=== PATIENT | female | born 1995 | race Caucasian/White ===

== ENCOUNTER → 2018-10-03 14:18 | Outpatient (CLI) | payer BC, SELFPAY ==
[2017-07-13 08:47] VITALS: BMI 34.7
[2018-10-03 16:18] LABS: hCG Titer Quant., Serum 877 mIU/mL (<9 non-preg)
[2018-10-03 17:26] LABS: Chlamydia Trachomatis by PCR Negative (Negative); Neisserai gonorrhoeae by PCR Negative (Negative); Probe Check PASS; Sample Adequacy Control PASS; Specimen Processing Control PASS
[2018-10-08 14:15] LABS: HPV Reflexed? NOT INDICATED
== END ==
PROVIDERS: Visit Provider Obstetrics & Gynecology
DX: Z32.01 Encounter for pregnancy test, result positive (principal); Z12.4 Encounter for screening for malignant neoplasm of cervix; Z11.3 Encounter for screening for infections with a predominantly sexual mode of transmission
CPT/HCPCS: 36415; 84702; 87491; 87591; 88175; G0145

== ENCOUNTER → 2018-10-05 | Outpatient (CLI) | payer BC, SELFPAY ==
[2017-07-13 08:47] VITALS: BMI 34.7
[2018-10-05 16:29] LABS: hCG Titer Quant., Serum 1873 mIU/mL (<9 non-preg)
== END | disposition home or self-care (01) ==
LOC: WOBLAB 14:10
PROVIDERS: Visit Provider Obstetrics & Gynecology
DX: Z32.01 Encounter for pregnancy test, result positive (principal)
CPT/HCPCS: 36415; 84702

== ENCOUNTER → 2018-10-11 | Outpatient (CLI) | payer BC, SELFPAY ==
[2017-07-13 08:47] VITALS: BMI 34.7
--- NOTE | 2018-10-11 13:45 | US_ITS ---
STUDY: FIRST TRIMESTER OBSTETRICAL ULTRASOUND REASON FOR EXAM: Female, 22 years old. dating. LMP: August 07, 2018. TECHNIQUE: Transvaginal TECHNICAL QUALITY: Adequate. PRIOR ULTRASOUND: None. FINDINGS: There is visualization of a single gestational sac in a normal intrauterine position. The mean sac diameter (MSD) measures 9 mm, indicating an estimated gestational age (EGA) of 5 weeks, 4 days. The gestational sac shape is within normal limits. There is a visualized yolk sac. The yolk sac measures 4.3 mm. The placenta is non-visualized. There is visualization of a embryo. The crown-rump length (CRL) measures 2.4 mm, indicating an estimated gestational age (EGA) of 5 weeks, 6 days. There is no demonstrated cardiac activity at this time. Follow-up is recommended. The estimated gestation age (EGA) by LMP is 9 weeks, 2 days. The estimated date of delivery (LUCY) by LMP is May 14, 2019. The estimated gestation age (EGA) by US is 5 weeks, 5 days. The estimated date of delivery (LUCY) by US is June 08, 2019. The uterus measures 8.5 cm x 6 x 4.6 cm. There is no demonstrated uterine fibroid. The cervix is closed. The right ovary measures 3.0 cm x 1.5 cm x 2.0 cm. There is no right ovarian cyst. There is no visualized right adnexal mass or complex lesion. The left ovary measures 4.0 cm x 2.6 x 2.1 cm. There is a 1.5 cm x 1.6 cm x 1.2 cm dominant follicle in the ovary most likely representing a corpus luteum cyst. There is no visualized left adnexal mass or complex lesion. There is minimal fluid in the cul de sac. US/Init OB < 14Wks US IMPRESSION: Anterior and gestation with a mean gestational age of 5 weeks and 6 days. No embryonic cardiac activity is seen at this time. Follow-up is recommended. Electronically Signed: Juanito Garzon, at 14:49 EDT , Service support ,
== END | disposition home or self-care (01) ==
LOC: OPUS 13:43
PROVIDERS: Family Provider Internal Medicine; PCP Internal Medicine; Referring Provider Obstetrics & Gynecology; Visit Provider Obstetrics & Gynecology
DX: Z34.81 Encounter for supervision of other normal pregnancy, first trimester (principal)
CPT/HCPCS: 76801

== ENCOUNTER → 2018-10-17 | Outpatient (CLI) | payer BC, SELFPAY ==
[2017-07-13 08:47] VITALS: BMI 34.7
[2018-10-17 15:34] LABS: Color, Urine Yellow (Yellow); Glucose, Dipstick Normal (Normal); Ketone-Dipstick Negative (Negative); Leukocyte Esterase-Dipstick 100 /ul (Negative); Nitrite-Dipstick Negative (Negative); Occult Blood-Urine Negative /ul (Negative); Protein-Dipstick Negative (Negative); Urine Bilirubin Dipstick Negative (Negative); Urine Clarity Clear (Clear); Urine Urobilinogen Normal (Normal)
[2018-10-17 15:49] LABS: Amphetamine Urine VISTA NEGATIVE (<1000 ng/mL); Barbiturate Urine VISTA NEGATIVE (< 200 ng/mL); Benzodiazepine Urine VISTA NEGATIVE (< 200 ng/mL); Cocaine Urine VISTA NEGATIVE (< 300 ng/mL); Ecstacy Urine VISTA NEGATIVE (< 500 ng/mL); Methadone Urine VISTA NEGATIVE (< 300 ng/mL); PCP Urine VISTA NEGATIVE (< 25 ng/mL); THC Urine VISTA NEGATIVE (< 50 ng/mL); Vista UDS pH Range 7
[2018-10-17 16:20] LABS: COTININE Drug Screen Negative (<200 ng/mL)
[2018-10-17 17:23] LABS: Absolute Lymphocyte Count 2.15 X10^3/ul (0.83-4.51); Absolute Neutrophil Count 4.3 X10^3/uL (2.0-7.7); Basophil# 0.02 X10^3/uL; Basophil% 0.3 % (0-1); Eosinophil# 0.12 X10^3/uL; Eosinophils% 1.7 % (0-5); Hematocrit 42.7 % (37-47); Hemoglobin 14.5 g/dl (12.0-15.0); Lymphocyte # 2.15 X10^3/ul (4.0); Lymphocyte % 30.9 % (19-41); Mean Corpuscular Hgb 29.5 pg (27.0-32.0); Mean Platelet Vol. 11.6 fl (6.2-12.0); Monocyte# 0.37 X10^3/uL; Monocyte% 5.3 % (0-10); Neutrophil # 4.28 X10^3/uL (2.7-7.7); Neutrophil % 61.7 % (47-70); Platelet Count 236 K/mm3 (150-450); RBC Distribution Width CV 13.8 % (11.6-14.6); RBC Distribution Width SD 43.7 fl (35.1-43.9); Red Blood Count 4.91 M/mm3 (4.2-5.4)
[2018-10-17 17:24] LABS: POSITIVE COUNT NO; POSITIVE DIFFERENTIAL NO; POSITIVE MORPHOLOGY NO
[2018-10-17 17:43] LABS: Thyroid Stim Hormone (TSH) 2.66 uIU/mL (0.358-3.74)
[2018-10-17 18:21] LABS: HIV - WCH Non-Reactive (Nonreactive)
[2018-10-19 02:51] LABS: Prenatal RPR NONREACTIVE (NONREACTIVE)
[2018-10-20 15:13] LABS: HEPATITIS B SURFACE AG Negative (Negative); Hep C Antibodies <0.1 s/co ratio (0.0-0.9); V-Zoster IgG (Immunity) 3261 index (Immune >165)
== END | disposition home or self-care (01) ==
LOC: WOBLAB 14:37
PROVIDERS: Visit Provider Obstetrics & Gynecology
DX: Z34.81 Encounter for supervision of other normal pregnancy, first trimester (principal)
CPT/HCPCS: 36415; 80307; 81002; 84443; 85025; 86703; 86762; 86787; 86803; 87340

== ENCOUNTER → 2018-11-27 | Outpatient (CLI) | payer OTHER, SELFPAY ==
[2017-07-13 08:47] VITALS: BMI 34.7
== END | disposition home or self-care (01) ==
LOC: LABSPEC 16:44
PROVIDERS: Visit Provider Obstetrics & Gynecology
DX: N39.0 Urinary tract infection, site not specified (principal)
CPT/HCPCS: 87086; 87088

== ENCOUNTER → 2019-01-23 | Outpatient (CLI) | payer OTHER, SELFPAY ==
--- NOTE | 2019-01-23 11:58 | US_ITS ---
STUDY: SECOND AND THIRD TRIMESTER OBSTETRICAL ULTRASOUND REASON FOR EXAM: Female, 23 years old. Routine survey. LMP: August 07, 2018. TECHNIQUE: Transabdominal TECHNICAL QUALITY: Adequate. PRIOR ULTRASOUND: Comparison is made with prior study dated October 11, 2018. FINDINGS: There is a single intrauterine fetus. The fetus is in a breech presentation. There is demonstrated cardiac activity with a heart rate of 146 bpm. There is a normal amniotic fluid volume. The largest amniotic fluid pocket measures 8.3 cm x 4.8 cm. The amniotic fluid index (ARDIAN) is within normal limits. The placenta is anterior in location and is not low lying. There are Grade 0 placental changes. The cervix measures 4.6 cm in length. The bilateral adnexal regions are normal. BIOMETRY: BPD: 4.97 cm: 21 weeks, 1 days HC: 18.78 cm: 21 weeks, 1 days AC: 17.66 cm: 22 weeks, 4 days FL: 3.6 cm: 21 weeks, 3 days CI: 77% FL/BPD: 72% FL/HC: FL/AC: 20% HC/AC: 1.06 age by current US: 21 weeks, 4 days. LUCY by current US: June 01, 2019. Estimated weight: 460 grams, +/- 67 grams, 97 %. age by prior US: 20 weeks, 4 days. LUCY by prior US: June 08, 2019. Age by LMP: 20 weeks, 4 days. LUCY by LMP: March 09, 2019. ANATOMY: Gender: Male Cranium: Normal lateral ventricles. Normal choroid plexus. Normal cerebellum. Normal cisterna magna. Normal face, nose and lips. Chest: Normal 4-chamber heart. Abdomen/Pelvis: Normal diaphragm. Normal stomach. Normal abdominal wall. Normal cord insertion. Normal 3 vessel cord. Normal kidneys. Normal bladder. Spine: Limited views of the cervical, thoracic and lumbar spine and sacrum due to position. Follow-up is recommended. Extremities: Normal bilateral upper extremities. Normal bilateral lower extremities. US/OB Anatomy Scan IMPRESSION: Single live intrauterine gestation with a mean gestational age of 20 weeks and 4 days. The measurements obtained today follow-up in the normal expected range. Limited visualization of the spine as described. A follow-up is recommended. Electronically Signed: Juanito Garzon, at 8:35 EDT , Service support ,
== END | disposition home or self-care (01) ==
PROVIDERS: Family Provider Internal Medicine; PCP Internal Medicine; Referring Provider Obstetrics & Gynecology; Visit Provider Obstetrics & Gynecology
DX: Z34.02 Encounter for supervision of normal first pregnancy, second trimester (principal)
CPT/HCPCS: 76805

== ENCOUNTER → 2019-02-18 | Outpatient (CLI) | payer OTHER, SELFPAY ==
[2017-07-13 08:47] VITALS: BMI 34.7
--- NOTE | 2019-02-18 12:16 | US_ITS ---
STUDY: SECOND AND THIRD TRIMESTER OBSTETRICAL ULTRASOUND - LIMITED REASON FOR EXAM: Female, 23 years old. Limited examination of the spine. LMP: August 07, 2018. PRIOR ULTRASOUND: Comparison is made with prior examination of January 23, 2019. TECHNIQUE: Transabdominal TECHNICAL QUALITY: Adequate. FINDINGS: There is a single intrauterine fetus. The fetus is in a transverse lie with the head on the maternal right side. There is demonstrated cardiac activity with a heart rate of 142 bpm. The placenta is anterior in location and is not low lying. Imaging of the cervical, thoracic and lumbar spine was performed. No abnormality is seen. US/OB Limited (No Biometrics) IMPRESSION: Unremarkable examination. Electronically Signed: Juanito Garzon, at 15:47 EDT , Service support ,
== END | disposition home or self-care (01) ==
LOC: OPUS 12:13
PROVIDERS: Family Provider Internal Medicine; PCP Internal Medicine; Referring Provider Obstetrics & Gynecology; Visit Provider Obstetrics & Gynecology
DX: Z34.82 Encounter for supervision of other normal pregnancy, second trimester (principal)
CPT/HCPCS: 76815

== ENCOUNTER → 2019-02-18 | Outpatient (CLI) | payer OTHER, SELFPAY | END | disposition home or self-care (01) | PROVIDERS: Family Provider Internal Medicine; PCP Internal Medicine; Referring Provider Obstetrics & Gynecology; Visit Provider Obstetrics & Gynecology | DX: Z34.82 Encounter for supervision of other normal pregnancy, second trimester (principal) ==

== ENCOUNTER → 2019-03-18 | Outpatient (CLI) | payer OTHER, SELFPAY ==
[2017-07-13 08:47] VITALS: BMI 34.7
[2019-03-18 10:38] LABS: Hematocrit 36.4 % (37-47); Hemoglobin 12.5 g/dL (12.0-15.0); Mean Corp Hgb Conc 34.3 g/dL (32-36); Mean Corpuscular Hgb 31.3 pg (27.0-32.0); Mean Platelet Vol. 11.4 fl (6.2-12.0); Platelet Count 170 K/mm3 (150-450); RBC Distribution Width CV 13.5 % (11.6-14.6); RBC Distribution Width SD 45.1 fl (35.1-43.9); White Blood Count 6.2 K/mm3 (4.4-11.0)
[2019-03-18 10:49] LABS: Glucose Challenge Gest 1H 50g 94 mg/dL (70-140)
== END | disposition home or self-care (01) ==
LOC: WOBLAB 09:50
PROVIDERS: Visit Provider Obstetrics & Gynecology
DX: Z34.83 Encounter for supervision of other normal pregnancy, third trimester (principal)
CPT/HCPCS: 36415; 82950; 85027; 86850

== ENCOUNTER → 2019-03-29 | Outpatient (CLI) | payer OTHER, SELFPAY ==
--- NOTE | 2019-03-29 12:15 | US_ITS ---
STUDY: SECOND AND THIRD TRIMESTER OBSTETRICAL ULTRASOUND REASON FOR EXAM: Female, 23 years old growth LMP: 09/01/2018 TECHNIQUE: Transabdominal TECHNICAL QUALITY: Adequate. PRIOR ULTRASOUND: 02/18/2019. FINDINGS: There is a single intrauterine fetus. The fetus is in a cephalic presentation. There is demonstrated cardiac activity with a heart rate of 120 bpm. There is a normal amniotic fluid volume. The largest amniotic fluid pocket measures 4.6 cm. The amniotic fluid index (ADRIAN) is 11.2 cm. The placenta is fundal in location. There are Grade 1 placental changes. The cervix measures 3.9 cm in length. The bilateral adnexal regions are normal. BIOMETRY: BPD: 7.9: 31 weeks, 5 days HC: 29.2: 32 weeks, 1 days AC: 27.9: 31 weeks, 6 days FL: 5.8: 30 weeks, 2 days CI: FL/BPD: FL/HC: FL/AC: HC/AC: age by current US: 31 weeks, 3 days. LUCY by current US: 05/28/2019. Estimated weight: 1788 grams, +/- 268 grams, 92 %. age by prior US: 30 weeks, 6 days. LUCY by prior US: 06/01/2019. Age by LMP: 29 weeks, 6 days. LUCY by LMP: 06/08/2019. US/OB Limited With Biometrics IMPRESSION: Single live fetus in a vertex presentation. survey not performed on this exam. Placenta is grade 1 and is not low-lying. Cervix is closed. age by current US: 31 weeks, 3 days. LUCY by current US: 05/28/2019. Estimated weight: 1788 grams, +/- 268 grams, 92 %. Electronically Signed: Valente Hoffman MD at 19:46 EDT , Service support ,
== END | disposition home or self-care (01) ==
PROVIDERS: Referring Provider Obstetrics & Gynecology; Visit Provider Obstetrics & Gynecology
DX: Z34.83 Encounter for supervision of other normal pregnancy, third trimester (principal)
CPT/HCPCS: 76816

== ENCOUNTER 2019-04-29 09:48 | Outpatient (CLI) | payer OTHER, SELFPAY ==
[2019-04-29 10:59] VITALS: BMI 36.9
[2019-04-29 11:06] LABS: Group B Strep DNA By PCR Negative (Negative); Internal Control PASS; Probe Check PASS; Specimen Processing Control PASS
[2019-04-29] MEDS: Lactated Ringers 500 ML 999 ML IV (11:15)
[2019-04-29] MEDS: Lactated Ringers 1,000 ML 125 ML IV (11:45)
[2019-04-29] MEDS: Betamethasone/Betamethasone 30 MG/5 ML Vial 12 MG IM (12:07)
--- NOTE | 2019-04-29 13:14 | OB.TRI.NOTE ---
History of Present Illness Date of Service: 04/29/19 Was patient seen by the physician?: Yes Reason For Visit: R/O PTL Date of Service: 04/29/19 Final LUCY: 06/08/19 Final LUCY Source: US <20 weeks Gestational age: 34 Weeks and 2 Days History of Present Illness: 23yo at 34w2d gestation by 8w3d US seen in office for c/o pelvic pressure, cramping since last night, decreased FM and increased vaginal discharge this AM on tissue after toileting; in office cervix was 2.5/30/-3, soft, anterior; abdomen soft, non tender; pool, nitrazine, fern, wet mount negative Allergies No Known Allergies Allergy (Verified 04/29/19 10:57) Laboratory Studies: Laboratory Tests 04/29/19 Range/Units 09:40 Group B Strep DNA Negative (Negative) Specimen Comment Not Reportable Physical Exam Vitals: AVSS per verbal report of RN Cervix Dilation (cm): 2.5 - VE per RN report Station: -3 Effacement (%): 30 NST - FHR Rate Baby A Baseline: 145 Variability:: Moderate Accelerations:: 15 x 15 Decelerations:: None NST Reactive:: Yes FHR Category:: Category I Impression/Plan Impression: 23yo at 34w2d gestation by 8w3d US R/O PTL w/ mild irregular UCs, 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 Norton who also reviewed strip GBS swab done in office prior to arrival Complete IV fluids -1L LR, now running at 125 p/500ml bolus Initial corticosteroid dose for prophylactic lung maturity given, return for 2nd dose in 24 hours DC home w/PTL precautions, FM counts, increased rest and fluids; pelvic rest and off work until 36 weeks RTO next scheduled office visit
== END 2019-04-29 10:40 | disposition home or self-care (01) ==
LOC: LABSPEC 09:49 → WPOUT 10:04 → WP 10:05
PROVIDERS: Referring Provider Advanced Practice Midwife; Visit Provider Advanced Practice Midwife
DX: O36.8190 Decreased fetal movements, unspecified trimester, not applicable or unspecified (principal); Z3A.34 34 weeks gestation of pregnancy
CPT/HCPCS: 96372; 59025; 59050; 87081; 87653; 99218; J7120; G0378; J0702

== ENCOUNTER 2019-04-30 11:20 | Outpatient (CLI) | payer OTHER, SELFPAY ==
[2019-04-29 10:59] VITALS: BMI 36.9
[2019-04-30] MEDS: Betamethasone/Betamethasone 30 MG/5 ML Vial 12 MG IM (11:48)
== END 2019-04-30 11:55 | disposition home or self-care (01) ==
LOC: LAB 11:22 → WP 11:23
PROVIDERS: Referring Provider Obstetrics & Gynecology; Visit Provider Obstetrics & Gynecology
DX: O60.00 Preterm labor without delivery, unspecified trimester (principal)
CPT/HCPCS: 96372; 99218; G0378; J0702

== ENCOUNTER 2019-05-08 16:45 | Outpatient (CLI) | payer OTHER, SELFPAY ==
[2019-05-08 17:02] VITALS: BMI 37.3
[2019-05-08 17:47] LABS: ROM Internal Control Test YES-OK TO RESULT pt. (Internal QC); ROM Patient Test Negative (Negative)
[2019-05-08 18:18] LABS: Color, Urine Yellow (Yellow); Glucose, Dipstick Normal (Normal); Ketone-Dipstick Negative (Negative); Leukocyte Esterase-Dipstick 100 /ul (Negative); Mucous, Urine 0 SEEN /hpf (<or=2+); Nitrite-Dipstick Negative (Negative); Occult Blood-Urine 10 /ul (Negative); Protein-Dipstick Negative (Negative); Urine Bilirubin Dipstick Negative (Negative); Urine Clarity Sl. Cloudy (Clear); Urine Urobilinogen Normal (Normal)
[2019-05-08 18:32] LABS: Bacteria 1+ /hpf (None Seen); Red Blood Cells-Urine 0-5 SEEN /hpf (0-5); Squamous Epithelial Cells - UA 5-10 SEEN /hpf (5-10); White Blood Cells 5-10 SEEN /hpf (0-5)
[2019-05-08] MEDS: Cephalexin 500 MG Capsule PO (19:40)
--- NOTE | 2019-05-08 23:55 | OB.TRI.HP_ITS ---
- Problem List (1) 35 weeks gestation of Status: Acute (2) False labor Status: Acute History of Present Illness Date of Service: 05/08/19 Was patient seen by the physician?: No Reason For Visit: R/O LABOR Final LUCY: 06/08/19 Final LUCY Source: US <20 weeks Gestational age: 35 Weeks and 4 Days History of Present Illness: 23yo with c/o back pain, pelvic discomfort and wetness. hx precipitous delivery. Allergies No Known Allergies Allergy (Verified 04/29/19 10:57) Laboratory Studies: Laboratory Tests 05/08/19 05/08/19 Range/Units 18:10 17:10 Urine Color Yellow (Yellow) Urine Clarity Sl. Cloudy (Clear) Urine pH 7.0 (5.0 - 8.0) Ur Specific [place] 1.010 (1.002-1.030) Urine Protein Negative (Negative) mg/dl Urine Glucose (UA) Normal (Normal) mg/dl Urine Ketones Negative (Negative) mg/dl Urine Occult Blood 10 H (Negative) /ul Urine Nitrite Negative (Negative) Urine Bilirubin Negative (Negative) mg/dL Urine Urobilinogen Normal (Normal) mg/dl Ur Leukocyte Esterase 100 H (Negative) /ul Urine RBC 0-5 SEEN (0-5) /hpf Urine WBC 5-10 SEEN (0-5) /hpf Ur Squamous Epith Cells 5-10 SEEN (5-10) /hpf Urine Bacteria 1+ (None Seen) /hpf Urine Mucus 0 SEEN (<or=2+) /hpf Vag Amniotic Fld Detect Negative (Negative) Physical Exam Vitals: avss NST - FHR Rate Baby A Baseline: 150 Variability:: Moderate Accelerations:: 15 x 15 Decelerations:: None NST Reactive:: Yes FHR Category:: Category I Uterine Activity:: 0/10 Impression/Plan 23yo with false labor at 35 4/7wga -d/c home
== END 2019-05-08 19:44 | disposition home or self-care (01) ==
LOC: WPOUT 17:01 → WP 17:02
PROVIDERS: Obstetrics & Gynecology; Referring Provider Obstetrics & Gynecology; Visit Provider Obstetrics & Gynecology
DX: O47.03 False labor before 37 completed weeks of gestation, third trimester (principal); Z3A.35 35 weeks gestation of pregnancy
CPT/HCPCS: 59025; 81001; 84112; 87086; 87088; 99218; G0378

== ENCOUNTER → 2019-05-10 | Outpatient (CLI) | payer OTHER, SELFPAY ==
[2019-05-08 17:02] VITALS: BMI 37.3
[2019-05-10 13:39] LABS: Protein, Urine (Random) 24.5 mg/dL (<11.9); Protein:Creat Ratio 152 mg/g CRE (0-200)
[2019-05-10 13:40] LABS: ALB/GLOB Ratio 0.7 RATIO (0.9-2.4); AST(SGOT) 21 U/L (15-37); Alanine Aminotransfer ALT/SGPT 28 U/L (13-56); Albumin, Serum 3.1 g/dL (3.2-5.0); Alkaline Phosphatase 144 U/L (45-117); Anion Gap 10 (5-15); BUN 6 mg/dL (7-18); BUN/Creat Ratio 11.5 RATIO (10-20); Chloride 106 mmol/L (98-107); Creatinine, Serum 0.52 mg/dL (0.55-1.02); EST Glomerular Filtration Rate 151 mL/min (>60); Est Glom Filt Rate - Afr Amer 183 mL/min (>60); Globulin 4.3 g/dL (2.2-4.2); Glucose 77 mg/dL (74-106); Hematocrit 42.2 % (37-47); Hemoglobin 14.1 g/dL (12.0-15.0); Mean Corp Hgb Conc 33.4 g/dL (32-36); Mean Corpuscular Hgb 30.8 pg (27.0-32.0); Mean Corpuscular Volume 92.1 fL (81-99); Mean Platelet Vol. 12.5 fl (6.2-12.0); Platelet Count 153 K/mm3 (150-450); Potassium 3.7 mmol/L (3.5-5.1); Protein, Total 7.4 g/dL (6.4-8.2); RBC Distribution Width CV 13.5 % (11.6-14.6); RBC Distribution Width SD 45.3 fl (35.1-43.9); Red Blood Count 4.58 M/mm3 (4.2-5.4); Sodium Level 139 mmol/L (136-145); White Blood Count 8.6 K/mm3 (4.4-11.0)
== END | disposition home or self-care (01) ==
LOC: WOBLAB 10:15
PROVIDERS: Referring Provider Obstetrics & Gynecology; Visit Provider Obstetrics & Gynecology
DX: O13.3 Gestational [pregnancy-induced] hypertension without significant proteinuria, third trimester (principal); Z3A.00 Weeks of gestation of pregnancy not specified
CPT/HCPCS: 36415; 80053; 82570; 84156; 84550; 85027

== ENCOUNTER 2019-06-03 07:05 | Inpatient (IN) | payer OTHER, SELFPAY ==
[2019-06-03] MEDS: Lactated Ringers 1,000 ML 50 ML IV (07:35)
[2019-06-03] MEDS: Oxytocin 30 units/NS 500 ml 30 UNITS/500 ML IV.SOLN IV (07:44)
[2019-06-03 07:45] VITALS: BMI 38.1
[2019-06-03 08:00] LABS: Absolute Lymphocyte Count 2.37 X10^3/uL (0.83-4.51); Absolute Neutrophil Count 3.7 X10^3/uL (2.0-7.7); Basophil# 0.02 X10^3/uL; Basophil% 0.3 % (0-1); Eosinophil# 0.07 X10^3/uL; Eosinophils% 1.1 % (0-5); Hematocrit 36.2 % (37-47); Hemoglobin 12.3 g/dL (12.0-15.0); Lymphocyte # 2.37 X10^3/ul (4.0); Mean Corpuscular Volume 88.3 fL (81-99); Monocyte# 0.42 X10^3/uL; Monocyte% 6.4 % (0-10); NRBC Flagged by Analyzer 0 % (0-5); Neutrophil # 3.67 X10^3/uL (2.7-7.7); Neutrophil % 55.7 % (47-70); Platelet Count 148 K/mm3 (150-450); RBC Distribution Width CV 13.2 % (11.6-14.6); RBC Distribution Width SD 42.9 fl (35.1-43.9); White Blood Count 6.6 K/mm3 (4.4-11.0)
--- NOTE | 2019-06-03 09:23 | HP.PCM_ITS ---
- Problem List (1) 39 weeks gestation of Status: Acute History Date of Admission: 06/03/19 Final LUCY: 06/08/19 Final LUCY Source: US <20 weeks Gestational age: 39 Weeks and 2 Days History of this : This is a 23 year-old, G [], P [], at 39 weeks gestational age. Allergies No Known Allergies Allergy (Verified 04/29/19 10:57) Home Medications: Home Medications Pnv No.95/Ferrous Fum/Folic AC [ Caplet] 1 ea PO DAILY 04/29/19 Smoking Status: Never smoker Number of Fetus(es): 1 NST - FHR Rate Baby A Baseline: 140 Variability:: Moderate Accelerations:: 15 x 15 Decelerations:: None NST Reactive:: Yes FHR Category:: Category I Uterine Activity:: Q3 minutes History Past Pregnancies: See office history Labs: Mom's Problem List Problem Status Onset Code 39 weeks gestation of Acute Z3A.[id number] Mom's Labs & Results 06/03/19 06/03/19 07:35 07:35 WBC 6.6 RBC 4.10 L Hgb 12.3 Hct 36.2 L MCV 88.3 MCH 30.0 MCHC 34.0 RDW Std Deviation 42.9 RDW Coeff of Chata 13.2 Plt Count 148 L MPV 12.0 Immature Gran % (Auto) 0.500 Neut % (Auto) 55.7 Lymph % (Auto) 36.0 Maries % (Auto) 6.4 Eos % (Auto) 1.1 Baso % (Auto) 0.3 Absolute Neuts (auto) 3.7 Absolute Lymphs (auto) 2.37 Nucleated RBC % 0 Blood Type B NEGATIVE Antibody Screen NEGATIVE Course Did the patient receive Yes care? Labs Blood Type: B RH: NEGATIVE RPR/VDRL/Syphilis Nonreactive Rubella status Immune HbSAg Negative Date Done: 10/17/18 Chlamydia Negative Gonorrhea Negative HIV/AIDS Non-Reactive Group B Strep: Negative Current Obstetrical History Gestational Diabetes No Incompetent Cervix No Infertility No IUGR No Macrosomia No Hypertension/Pre-eclampsia No Placenta Previa/Abruption No PTL/PROM No Uterine anomaly No Oligohydramnios No Polyhydramnios No Multiple gestation No Past Medical History Asthma No Diabetes No Hypertension No Heart disease No Mitral valve prolapse No Neurologic/Seizure disorder/ Yes Migraines Kidney disease No Liver disease No Varicosities No Clotting disorders/Hx of DVT No Thyroid Dysfunction No Other medical diseases No Psychiatric disorders No Major trauma No Abnormal PAP smear No Sleep apnea No Mammogram in the last 2 years No Social History Marital Status: Alleged father [place] Hx Smoking No Smoking Status Never smoker Expected Delivery Method: Spontaneous Vaginal Number of Visits: 14 Review of Systems Constitutional: Denies: Chills, Fever, Weight Change HEENT: Denies: Head Aches, Sinus Congestion, Sinus Drainage Cardiovascular: Denies: Chest Pain, Palpitations Respiratory: Denies: Cough, Shortness of breath at rest, Sputum production Gastrointestinal: Denies: Abdominal Pain, Nausea, Vomiting Genitourinary: Denies: Dysuria Musculoskeletal: Denies: Joint Pain, Joint Tenderness Skin: Denies: Rash, Wounds Neurological: Denies: Numbness, Tingling, Focal weakness Psychiatric: Denies: Anxiety, Depression, Homicidal Ideations, Suicidal Ideations Hematologic/ Lymphatic: Denies: Easy Bruising, Easy Bleeding Physical Exam General: Alert, Oriented x3, No apparent distress HEENT: Atraumatic, Normocephalic. Negative for: Thyromegaly, Lymphadenopathy Cardiovascular: Regular rate, Regular Rhythm Lungs: Clear to auscultation Abdomen: Bowel Sounds Present, Gravid Neurological: Deep Tendon Reflexes 2+/4 and Symmetrical, Neuro grossly intact [employer]: Normal external genitalia. Negative for: Vulvar lesions Estimated gestational size: Appropriate for gestational size Presentation: Cephalic Cervix Dilation (cm): 5 - per RN Station: -3 Effacement (%): 50 Assessment/Plan All Active Problems 35 weeks gestation of (Acute) False labor (Acute) 39 weeks gestation of (Acute) A: This is a 23 year-old, G [3], P [2], at 39.2 weeks gestational age. Scheduled elective induction of labor d/t hx of rapid labors and distance from hospital NST baseline 140, + accels, - decels, moderate variability, Category 1 P: Pitocin induction Wishes to go natural, will allow AROM if not progressing To recheck SVE in 4 hours or as needed Expect vaginal delivery
[2019-06-03] MEDS: Oxytocin 30 units/NS 500 ml 30 UNITS/500 ML IV.SOLN 334 UNITS IV (14:55)
--- NOTE | 2019-06-03 17:13 | DCINST_ITS ---
Discharge Diet: No Restrictions Discharge Activity: Return to Normal Activity, May not drive while taking narcotic pain medications., May Shower May resume sexual activity in: 4-6 weeks Additional Activity Instructions:: Nothing in the vagina for 4-6 weeks. You may return to work/school in 6 weeks. Additional Instructions: If you experience any of the following, contact your healthcare provider. * Bleeding that soaks a pad every hour for 2 hours * Fever 100.4 or higher * Unrelieved incision or abdominal pain * Swelling, redness, discharge or bleeding from your incision or episiotomy site * Your incision begins to separate * Problems urinating (including inability to urinate or burning while urinating). * Visual changes * Severe headache * Flu-like symptoms * Pain or redness in one of both of your breasts * Pain, warmth, tenderness or swelling in your legs, especially the calf area * Frequent nausea and vomiting * Symptoms of depression or anxiety If you experience any of the following, call 911 or go to the nearest Emergency Room. * Chest pain * Problems breathing * Seizure activity * Partial or complete paralysis of a body part, slurred speech, weakness or drooping of the face, or a sudden inability to walk or hold your balance Allergies/Adverse Reactions: Allergies No Known Allergies Allergy (Verified 04/29/19 10:57) Medications to take at Discharge Pnv No.95/Ferrous Fum/Folic AC [ Caplet] 1 ea PO DAILY 04/29/19 Please Follow Up With: Marcie Hart CNM When: In 6 weeks Primary Care Physician: Care Physician,No Primary [Primary Care Provider] - Test Results: Test results from this visit will be discussed in further detail at your follow- up appointment, if applicable. Proposed Discharge Date: 06/05/19
--- NOTE | 2019-06-03 17:13 | PCM.DCVAG ---
Discharge Diet: No Restrictions Discharge Activity: Return to Normal Activity, May not drive while taking narcotic pain medications., May Shower May resume sexual activity in: 4-6 weeks Additional Activity Instructions:: Nothing in the vagina for 4-6 weeks. You may return to work/school in 6 weeks. Additional Instructions: If you experience any of the following, contact your healthcare provider. Bleeding that soaks a pad every hour for 2 hours Fever 100.4 or higher Unrelieved incision or abdominal pain Swelling, redness, discharge or bleeding from your incision or episiotomy site Your incision begins to separate Problems urinating (including inability to urinate or burning while urinating). Visual changes Severe headache Flu-like symptoms Pain or redness in one of both of your breasts Pain, warmth, tenderness or swelling in your legs, especially the calf area Frequent nausea and vomiting Symptoms of depression or anxiety If you experience any of the following, call 911 or go to the nearest Emergency Room. Chest pain Problems breathing Seizure activity Partial or complete paralysis of a body part, slurred speech, weakness or drooping of the face, or a sudden inability to walk or hold your balance Allergies/Adverse Reactions: Allergies No Known Allergies Allergy (Verified 04/29/19 10:57) Medications to take at Discharge Pnv No.95/Ferrous Fum/Folic AC [ Caplet] 1 ea PO DAILY 04/29/19 Please Follow Up With: Marcie Hart CNM When: In 6 weeks Primary Care Physician: Care Physician,No Primary [Primary Care Provider] - Test Results: Test results from this visit will be discussed in further detail at your follow-up appointment, if applicable. Proposed Discharge Date: 06/05/19
--- NOTE | 2019-06-03 17:15 | PCM.OPRPT ---
Problem List (1) 39 weeks gestation of Status: Acute Vaginal Delivery Maternal Presentation: Elective Induction Called to delivery with head at 0 station, urge to push with an anterior lip 9-12 o'clock. Able to push past cervical lip, with two pushes. Pushed well, delivered a viable male OA to KIEL. placed on mothers abdomen. Apgars 9/9. Cord clamped x2 by CNM and cut by FOB. Cord blood collected. Pitocin started after cord cut. Placenta delivered spontaneously with gentle traction in Kowalski mechanism, intact, appearing 3 vessel cord, central insertion, fundal massage provided. First degree perineal laceration, no repair needed. EBL 150. Sponge and instrument count correct x 2 with RN. Method of Induction: Pitocin Amniotic Membrane Rupture Type: Artificial Rupture of Membrane time: 1230 Amniotic Fluid Description: Clear Final LUCY: 06/08/19 Final LUCY Source: US <20 weeks Gestational age: 39 Weeks and 2 Days Date of Procedure: 06/03/19 Pre-Operative Diagnosis: 39 week induction Post-Operative Diagnosis: S/P NVD Surgery/ Procedure Performed: Spontaneous Vaginal Delivery Type of Anesthesia: None Presentation: Vertex, KIEL Placental Delivery Description: Spontaneous Placenta Disposition: [facility] Cord Vessel Description: 3 Vessels Cord Entanglement: None Estimated Blood Loss: 150 Infant A gender: Male (1 minute): 9 (5 minute): 9 Episiotomy Description: None Laceration: Perineal Extension/lac, 1st degree - no repair needed Medications given after delivery: IV Pitocin
[2019-06-03] MEDS: 0.9% Saline Lock 10 ML Syringe IV (17:21)
[2019-06-03] MEDS: Ibuprofen 600 MG Tablet PO (17:25)
[2019-06-03 19:55] VITALS: BP 106/65; PULSE 73; RESP 16; TEMP 36.3; O2SAT 97
[2019-06-03] MEDS: Acetaminophen 500 MG Tablet 1000 MG PO (20:24)
[2019-06-04 00:50] VITALS: BP 144/93; PULSE 87; RESP 16; TEMP 36.3; O2SAT 98
[2019-06-04] MEDS: oxyCODONE 5 MG Tablet PO (01:04)
[2019-06-04] MEDS: Dibucaine 30 GM Tube 1 APPLIC TOPICAL (01:05)
[2019-06-04 04:20] VITALS: BP 119/77; PULSE 74; RESP 18; TEMP 36.2; O2SAT 98
[2019-06-04] MEDS: Ibuprofen 600 MG Tablet PO ×2 (07:06→15:03)
[2019-06-04 08:05] VITALS: BP 122/88; PULSE 74; RESP 18; TEMP 37; O2SAT 98
--- NOTE | 2019-06-04 08:58 | PCM.PN.OB ---
Patient Problems: Active and Suspected Problems 39 weeks gestation of (Acute) Subjective: States she is doing well, mild cramping. Bottle feeding son and wants to go home after his circumcision. Objective: VSS. Fundus u/1 firm midline with normal lochia rubra. - Physical Exam Vitals/I&O's: Vital Signs Temp Pulse Resp BP Pulse Ox 98.6 F 74 18 122/88 H 98 06/04/19 08:05 06/04/19 08:05 06/04/19 08:05 06/04/19 08:05 06/04/19 08:05 Oxygen Delivery Method Room Air Weight: 103.9 kg Body Mass Index (BMI) 38.1 Intake and Output for Last 24 Hours 06/02/19 06/03/19 06/04/19 23:59 23:59 23:59 Intake Total 902.46 / 902.46 Balance 902.46 / 902.46 General: Alert, Oriented x3, Cooperative HEENT: Atraumatic, PERRLA, EOMI, Normocephalic Neck: Supple, No JVD, Negative Carotid Bruits Lungs: Clear to auscultation, Normal air movement Cardiovascular: Regular rate, No murmurs Abdomen: Bowel Sounds Present, Soft, Non Tender, Passing Flatus, - - fundus u/1 Extremities: No edema, Capillary Refill Less than 3 Seconds Skin: No rashes, No breakdown, - - perineal 1st degree laceration repair Musculoskeletal: No Tenderness to Palpation of Joints or Extremities Neurological: Cranial nerves II-XII grossly intact Psych/Mental Status: Normal Affect, Appropriate Laboratory Results 06/03/19 07:35: Blood Type B NEGATIVE, Antibody Screen NEGATIVE Current Medications Acetaminophen (Tylenol) 1,000 mg PO Q8H PRN PRN PRN Reason: Pain Score 1-3/10 Last Admin: 06/03/19 20:24 Dose: 1,000 mg Documented by: Bisacodyl (Dulcolax) 10 mg RECTAL UD PRN PRN Reason: If no BM Dibucaine (Dibucaine) 1 applic TOPICAL TID PRN PRN; Protocol PRN Reason: Discomfort Last Admin: 06/04/19 01:05 Dose: 1 applicatio Documented by: Hydrocortisone (Hytone) 1 applic TOPICAL TID PRN PRN; Protocol PRN Reason: Discomfort Ibuprofen (Motrin) 600 mg PO Q6H PRN PRN PRN Reason: Pain Score 1-3/10 Last Admin: 06/04/19 07:06 Dose: 600 mg Documented by: Influenza Virus Vaccine Quadrival (Flucelvax /Fluzone ) 0.5 ml IM .ONCE ONE Stop: 06/04/19 10:01 Methylergonovine Maleate (Methergine) 0.2 mg IM X1 PRN PRN Reason: Excess bleeding/uterine atony Ondansetron HCl (Zofran) 4 mg IV Q4H PRN PRN PRN Reason: Nausea Oxycodone HCl (Oxyir) 5 - 10 mg PO Q4H PRN PRN PRN Reason: Pain Score 4-10/10 Last Admin: 06/04/19 01:04 Dose: 5 mg Documented by: Senna/Docusate Sodium (Senokot-S, Maame-Colace) 1 - 2 tablet PO DAILY PRN PRN PRN Reason: Constipation Simethicone (Mylicon) 80 mg PO PCHS PRN PRN Reason: Indigestion/Stomach pain Sodium Chloride () 5 - 15 ml IV UD PRN PRN Reason: SALINE FLUSH Last Admin: 06/03/19 17:21 Dose: 10 ml Documented by: Zolpidem Tartrate (Ambien (Generic)) 5 mg PO QHS PRN PRN PRN Reason: Insomnia Medical Necessity - Tobacco Use Smoking Status: Never smoker Assessment/Plan All Active Problems 35 weeks gestation of (Acute) False labor (Acute) 39 weeks gestation of (Acute) A: S/P day #1 First degree laceration Male bottle feeding P: Continue with stool softeners, Motrin and Tylenol PRN Plan to discharge later today after son's circumcision
--- NOTE | 2019-06-04 09:36 | PCM.DC.SUM ---
Discharge Date and Diagnosis - Problem List Patient Problems: Active and Suspected Problems 39 weeks gestation of (Acute) Date of Admission: 06/03/19 Date of Discharge: 06/04/19 - Primary Discharge Diagnosis Active and Suspected Problems 39 weeks gestation of (Acute) Hospital Course and Treatment Summary of Care Provided: The patient is a 23 year old F [] Patient Problems: Active and Suspected Problems 39 weeks gestation of (Acute) Subjective: Feeling well, mild cramping, but overall good. Bottle feeding son. Objective: VSS. Fundus u/1. Lochia rubra. - Physical Exam Vitals/I&O's: Vital Signs Temp Pulse Resp BP Pulse Ox 98.6 F 74 18 122/88 H 98 06/04/19 08:05 06/04/19 08:05 06/04/19 08:05 06/04/19 08:05 06/04/19 08:05 Oxygen Delivery Method Room Air Weight: 103.9 kg Body Mass Index (BMI) 38.1 Intake and Output for Last 24 Hours 06/02/19 06/03/19 06/04/19 23:59 23:59 23:59 Intake Total 902.46 / 902.46 Balance 902.46 / 902.46 General: Alert, Oriented x3, Cooperative HEENT: Atraumatic, PERRLA, EOMI, Normocephalic Neck: Supple, No JVD, Negative Carotid Bruits Lungs: Clear to auscultation, Normal air movement Cardiovascular: Regular rate, No murmurs Abdomen: Bowel Sounds Present, Soft, Non Tender, Passing Flatus, - - fundus u/1 Extremities: No edema, Capillary Refill Less than 3 Seconds Skin: No rashes, No breakdown Musculoskeletal: No Tenderness to Palpation of Joints or Extremities Neurological: Cranial nerves II-XII grossly intact Psych/Mental Status: Normal Affect, Appropriate Laboratory Results 06/03/19 07:35: Blood Type B NEGATIVE, Antibody Screen NEGATIVE Current Medications Acetaminophen (Tylenol) 1,000 mg PO Q8H PRN PRN PRN Reason: Pain Score 1-3/10 Last Admin: 06/03/19 20:24 Dose: 1,000 mg Documented by: Bisacodyl (Dulcolax) 10 mg RECTAL UD PRN PRN Reason: If no BM Dibucaine (Dibucaine) 1 applic TOPICAL TID PRN PRN; Protocol PRN Reason: Discomfort Last Admin: 06/04/19 01:05 Dose: 1 applicatio Documented by: Hydrocortisone (Hytone) 1 applic TOPICAL TID PRN PRN; Protocol PRN Reason: Discomfort Ibuprofen (Motrin) 600 mg PO Q6H PRN PRN PRN Reason: Pain Score 1-3/10 Last Admin: 06/04/19 07:06 Dose: 600 mg Documented by: Influenza Virus Vaccine Quadrival (Flucelvax /Fluzone ) 0.5 ml IM .ONCE ONE Stop: 06/04/19 10:01 Methylergonovine Maleate (Methergine) 0.2 mg IM X1 PRN PRN Reason: Excess bleeding/uterine atony Ondansetron HCl (Zofran) 4 mg IV Q4H PRN PRN PRN Reason: Nausea Oxycodone HCl (Oxyir) 5 - 10 mg PO Q4H PRN PRN PRN Reason: Pain Score 4-10/10 Last Admin: 06/04/19 01:04 Dose: 5 mg Documented by: Senna/Docusate Sodium (Senokot-S, Maame-Colace) 1 - 2 tablet PO DAILY PRN PRN PRN Reason: Constipation Simethicone (Mylicon) 80 mg PO PCHS PRN PRN Reason: Indigestion/Stomach pain Sodium Chloride () 5 - 15 ml IV UD PRN PRN Reason: SALINE FLUSH Last Admin: 06/03/19 17:21 Dose: 10 ml Documented by: Zolpidem Tartrate (Ambien (Generic)) 5 mg PO QHS PRN PRN PRN Reason: Insomnia Discharge Diet: No Restrictions Discharge Activity: Return to Normal Activity, May not drive while taking narcotic pain medications., May Shower May resume sexual activity in: 4-6 weeks Additional Activity Instructions:: Nothing in the vagina for 4-6 weeks. You may return to work/school in 6 weeks. Home Medications: Medications to take at Discharge Pnv No.95/Ferrous Fum/Folic AC [ Caplet] 1 ea PO DAILY 04/29/19 Primary Care Physician: Care Physician,No Primary [Primary Care Provider] - Please Follow Up With: Marcie Hart CNM When: 6 weeks Disposition: Home Minutes spent on discharge:: 20 Patient Condition:: Good Medical Necessity - Tobacco Use Smoking Status: Never smoker Meaningful Use Info Meaningful Use Diagnoses (Choose all that apply): None applicable
[2019-06-04 12:33] VITALS: BP 110/68; PULSE 70; RESP 16; TEMP 36.3; O2SAT 96
[2019-06-04 16:54] VITALS: BP 122/74; PULSE 81; RESP 16; TEMP 36.4; O2SAT 96
== END 2019-06-04 17:05 | disposition home or self-care (01) | DRG 807 ==
PROVIDERS: Admitting Provider Obstetrics & Gynecology; Referring Provider Obstetrics & Gynecology; Visit Provider Obstetrics & Gynecology
DX: O70.0 First degree perineal laceration during delivery (principal); Z37.0 Single live birth; Z3A.39 39 weeks gestation of pregnancy
CPT/HCPCS: 59050; 85025; 86850; 86900; 86901; 99218; J7120; 90686; A4216; G0378

== ENCOUNTER → 2023-09-08 | Outpatient (CLI) | payer MEDICAID, SELFPAY ==
[2023-09-08 08:54] LABS: Absolute Lymphocyte Count 2.02 X10^3/uL (0.83-4.51); Absolute Neutrophil Count 2.9 X10^3/uL (2.0-7.7); Basophil# 0.04 X10^3/uL; Basophil% 0.7 % (0-1); Eosinophil# 0.11 X10^3/uL; Hematocrit 39.5 % (37-47); Hemoglobin 13.3 g/dL (12.0-15.0); Lymphocyte # 2.02 X10^3/ul (0.83-4.51); Lymphocyte % 37.3 % (19-41); Mean Corp Hgb Conc 33.7 g/dL (32-36); Mean Corpuscular Hgb 29.8 pg (27.0-32.0); Mean Corpuscular Volume 88.4 fL (81-99); Mean Platelet Vol. 10.1 fl (6.2-12.0); Monocyte# 0.32 X10^3/uL; Monocyte% 5.9 % (0-10); NRBC Flagged by Analyzer 0 % (0-5); Neutrophil # 2.91 X10^3/uL (2.7-7.7); Neutrophil % 53.9 % (47-70); Platelet Count 218 K/mm3 (150-450); RBC Distribution Width CV 13.1 % (11.6-14.6); RBC Distribution Width SD 42.1 fl (35.1-43.9); Red Blood Count 4.47 M/mm3 (4.2-5.4); White Blood Count 5.4 K/mm3 (4.4-11.0)
[2023-09-08 09:27] LABS: Thyroid Stim Hormone (TSH) 2.97 uIU/mL (0.358-3.74)
== END | disposition home or self-care (01) ==
PROVIDERS: PCP Internal Medicine; Referring Provider Obstetrics & Gynecology; Visit Provider Obstetrics & Gynecology
DX: N80.9 Endometriosis, unspecified (principal)
CPT/HCPCS: 36415; 84443; 85025

== ENCOUNTER → 2023-10-03 | Outpatient (CLI) | payer MEDICAID, SELFPAY ==
--- NOTE | 2023-10-03 16:15 | US_ITS ---
EXAM: US PELVIS TRANSABDOMINAL LIMITED AND TRANSVAGINAL CLINICAL INDICATION: endometriosis TECHNIQUE: Transabdominal (limited) and transvaginal pelvic ultrasound was performed with grayscale and color Doppler imaging. Transvaginal imaging was used for better evaluation of the endometrium and adnexa. COMPARISON: No relevant prior studies available. FINDINGS: UTERUS/CERVIX: Nabothian cysts are present. Anteverted. There is no uterine mass. The uterus measures 7.6 x 4.9 x 3.0 cm. The endometrial stripe measures 0.5 cm in thickness. RIGHT OVARY: No significant abnormality. Blood flow is present in the right ovary. The right ovary measures 4.3 x 2.1 x 2.1 cm. LEFT OVARY: No significant abnormality. Blood flow is present in the left ovary. The left ovary measures 3.6 x 1.7 x 1.9 cm. FREE FLUID: Mild free fluid within the cul-de-sac is likely physiologic. BLADDER: Normal as visualized. Wall is normal thickness for degree of distention. US/Transvaginal Non- IMPRESSION: No acute findings in the pelvis. Electronically Signed: Jeffrey Villaseñor DO at 0:00 EDT ,
== END | disposition home or self-care (01) ==
LOC: US 16:14
PROVIDERS: PCP Internal Medicine; Referring Provider Obstetrics & Gynecology; Visit Provider Obstetrics & Gynecology
DX: N80.9 Endometriosis, unspecified (principal)
CPT/HCPCS: 76830; 76856

== ENCOUNTER 2024-01-30 07:42 | Day surgery (SDC) | payer MEDICAID, SELFPAY ==
[2024-01-27 09:30] LABS: Hematocrit 41.9 % (37-47); Hemoglobin 13.6 g/dL (12.0-15.0); Mean Corp Hgb Conc 32.5 g/dL (32-36); Mean Corpuscular Hgb 28.8 pg (27.0-32.0); Mean Corpuscular Volume 88.8 fL (81-99); Mean Platelet Vol. 9.2 fl (6.2-12.0); Platelet Count 235 K/mm3 (150-450); RBC Distribution Width CV 13.3 % (11.6-14.6); RBC Distribution Width SD 43.4 fl (35.1-43.9); Red Blood Count 4.72 M/mm3 (4.2-5.4); White Blood Count 6.2 K/mm3 (4.4-11.0)
[2024-01-27 10:32] LABS: Magnesium 2.3 mg/dL (1.6-2.6)
[2024-01-30] VITALS (7 sets, daily range): BP systolic 121–127; BP diastolic 68–79; PULSE 80–105; RESP 16–18; TEMP 36.1–37; O2SAT 89–98; BMI 44.6
--- NOTE | 2024-01-30 06:40 | PCM.HP.BLA ---
History and Physical Date of Admission: 01/30/24 [facility] [address] [place] [address] OFFICE VISIT Date of Service: 01/19/24 MR#: [id number] Acct: [id number] Name: GUSTABO FIGUEROA Rep #: [id number] : 1995 Provider: Dr. Tita Harry MD Age/Sex: 28/F [place] [facility] [place]: Signed Intake Vital Signs 09/08/2407:09 09/10/2410:32 01/19/2412:24 01/19/2412:25 Height 5 ft 5 in 5 ft 5 in 5 ft 5 in 5 ft 5 in Weight: 269 lb 8 oz BMI 44.8 BP 138/88 H Intake Visit Reasons: preop/consult penciled in 01/29 Fur Buyer Required: No Is patient in pain?: No Allergies No Known Allergies Allergy (Verified 01/19/24 12:24) Medications ?Medication ?Instructions ?Recorded ?Confirmed ?Type bupropion HCl 300 mg 24 hr tablet, 300 mg PO QAM 08/28/23 01/19/24 History extended release citalopram 40 mg tablet 40 mg PO DAILY 08/28/23 01/19/24 History phentermine 37.5 mg capsule 37.5 mg PO DAILY 08/28/23 01/19/24 History Is last menstrual period known: Yes Post menopausal: No Patient : No : [facility] Medical History (Updated 01/19/24 @ 14:[address] Tita Harry MD) Contraceptive management Surgical History (Updated 01/19/24 @ 14:[address] 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 current occupational exposures/hazards: No pets and animals: Yes history of recent travel: No sexually active: Yes Smoking Status: Never smoker second hand exposure: No alcohol intake: current alcohol intake frequency: holidays/special occasions only substance use type: does not use well-balanced diet: daily or most days eating out: rarely or never during the past year weight has: decreased > 10 lbs what type of physical activity do you participate in: walking frequency: 3-4 times per week mimi/yazdanism: None do you feel safe at home: Yes additional social history: - Bob HPI preop/consult penciled in 01/29 Details: GUSTABO FIGUEROA is a 28 year old who presents for preop consult. she is still having painful menses and dyspareunia, persistent lower pelvic pain, she will be fine for one week and then she hurt. she has pain with intercourse, spotting afterwards. pain is worst with menses. she has nausea during menses and she has heavy menses.she has a history of migraines with aura. she has tried control in the past and it didn't help. she had endometriosis seen at her tubal ligation in the past. couldn't tolerate the orilissa History 3 Elective abortions Hx Para 3 Spontaneous abortions Hx # Term Pregnancies Ectopic pregnancies Hx # Pregnancies Multiple births # of living children ROS Const Constitutional: Denies fatigue, fever(s), headache(s), increased appetite, poor appetite, weight gain or weight loss Cardio Card: Denies chest pain Resp Resp: Denies cough or dyspnea GI GI: Reports as per HPI; Denies abdominal pain, constipation, nausea or vomiting : Reports as per HPI; Denies difficulty voiding, dysuria, nipple discharge, urinary frequency, urinary incontinence, urinary hesitancy, urinary urgency, vaginal discharge, vaginal dryness, vaginal odor or vaginal pruritus Skin Skin/Breast: Denies change in hair, breast mass, breast pain, breast skin changes or nipple discharge Exam Const General: cooperative, healthy appearing, comfortable, no acute distress and well developed Nutritional Appearance: average body habitus Orientation: alert HENMT Head: normal to inspection and normocephalic Neck Neck: normal visual inspection and trachea midline Thyroid: thyroid normal Resp Effort & Inspection: normal respiratory effort GI Inspection: normal to inspection and non-distended Palpation: soft and no hepatosplenomegaly General: bladder normal to palpation External Female Exam: normal external appearance and normal appearance of the urethra Urethra: normal appearance of the urethra, normal palpation and no discharge Speculum Exam - Vagina: normal appearance of the vagina and normal vaginal discharge Speculum Exam - Cervix: normal appearance of the cervix and nontender Bimanual Exam- Vagina & Uterus: normal bimanual exam (freely mobile), uterine size normal, bladder normal to palpation, uterine shape normal, No tender, uterine mobility normal, consistency normal, normal palpation and tender Bimanual Exam- Adnexa, other: normal adnexae, adnexae mobile, no masses and normal Pelvic Support: normal Skin General: no rashes or lesions noted Coding Level of Care Code Off vis,est,level 4 Diagnoses Endometriosis N80.9 Assessment and Plan Assessment and Plan (1) Endometriosis: Status: Acute Comment: orilissa samples given- had allergic reaction. plan for LAVH (may have had all of tubes already removed in [place]) Plan After discussing the patient's diagnosis and treatment plan options, patient wishes to proceed with surgical management. I have discussed with the patient the risks, benefits, and alternatives of the procedure which include but are not limited to risks of anesthesia, bleeding, infection, possible damage to bowel, bladder, or surrounding vasculature which could lead to additional surgery to evaluate any complications. Patient agrees to procedure and wishes to proceed. ACOG/uptodate references given for additional information regarding procedure. UPDATE- I have seen the patient and performed any clinically relevant updates to the history and physical exam. Tita Harry MD
--- NOTE | 2024-01-30 08:07 | PCM.PRE.AN2 ---
ASA Classification* ASA Classification ASA Classification: 3 Assessment & Plan Anesthesia* Anesthesia Assessment Anesthesia Assessment: Discussed sedation and/or anesthesia options, risks, benefits, and alternatives with patient/parents/legal guardian/POA. Questions invited. The patient/parents/legal guardian/POA seems to understand and agrees to proceed with anesthesia plan. Reviewed the physical assessment, medical history, allergy history and patient home medications list prior to surgery/procedure/anesthetic and documented any changes. Performed airway and anesthesia risk assessments. Anesthesia Type Anesthesia Type: General (*see written preanesthesia record for full assessment) Anesthesia Focused Assessment* Airway Assessment Mouth opens: >3 cm Mallampati Score: II Focused Labs Anesthesia Preop lab: CBC WBC 6.2 K/mm3 (4.4-11.0) 01/27/24 08:45 RBC 4.72 M/mm3 (4.2-5.4) 01/27/24 08:45 Hgb 13.6 g/dL (12.0-15.0) 01/27/24 08:45 Hct 41.9 % (37-47) 01/27/24 08:45 Plt Count 235 K/mm3 (150-450) 01/27/24 08:45 CHEMISTRY Potassium 3.7 mmol/L (3.5-5.1) 05/10/19 10:16 Sodium 139 mmol/L (136-145) 05/10/19 10:16 Magnesium 2.3 mg/dL (1.6-2.6) 01/27/24 08:44 BUN 6 mg/dL (7-18) L 05/10/19 10:16 Creatinine 0.52 mg/dL (0.55-1.02) L 05/10/19 10:16 Glucose 77 mg/dL (74-106) 05/10/19 10:16 TSH 2.97 uIU/mL (0.358-3.74) 09/08/23 08:40 COAG HCG, Quant 1873 mIU/mL (<9 non-preg) H 10/05/18 14:10 Pre-Assessment Diagnosis/Proposed Procedure Planned Operative Procedure(s): (B) Hysterectomy,LAVH, possible Bilateral Salpingectomy Anesthesia History Anesthesia History - divider operator: Anesthesia History - divider operator Hx Hospitalization No 08/01/24 09:25 Any Problems With Anesthesia Yes: PONV 01/25/24 09:25 Cholinesterase deficiency No 01/25/24 09:25 You/Your Family Experience No 01/25/24 09:25 fever (hyperthermia) with Relationship Recent Exposure to Contagious Disease Does patient have nerve No 01/25/24 09:25 stimulator Patient instructed to have device shut off --Does patient have Pacemaker or ICD? When Was Last Pacemaker Check QUESTION #4 FULL TEXT: You/Your Family Experience fever (hyperthermia) with Anesthesia Last Oral Intake Last Oral intake: Last Oral Intake NPO since Meds taken in AM with sips of water? Meds patient instructed to take am of surgery PONV PONV - divider operator: PONV - divider operator Female Yes 01/25/24 09:25 HX of Motion Sickness Yes 01/25/24 09:25 HX of N/V After Surgery Yes 01/25/24 09:25 Non-Smoker Yes 01/25/24 09:25 Duration of Surgery greater Yes 01/25/24 09:25 than 60 minutes Number of Risk Factors 5 01/25/24 09:25 PONV Score Severe Risk 01/25/24 09:25 Height & Weight Height & Weight: Anesthesia: Height & Weight Height 5 ft 5 in 01/29/24 08:16 Weight: 122.47 kg 01/29/24 08:16 Respiratory Assessment Respiratory Assessment - divider operator: Respiratory Tract Infection Hx - divider operator Hx Respiratory Tract Infection No 01/25/24 09:25 STOP Sleep Apnea STOP Sleep Apnea - divider operator: STOP Sleep Apnea - divider operator Hx Hypertension No 01/25/24 09:25 Hx Sleep Apnea No 01/25/24 09:25 CPAP BIPAP Do you snore loudly (louder No 01/25/24 09:25 than talking or can be heard Do you often feel tired/ No 01/25/24 09:25 fatigued/ sleepy during daytime? Has anyone observed you stop No 01/25/24 09:25 breathing during sleep? STOP Results Negative 01/25/24 09:25 QUESTION #5 FULL TEXT : Do you snore loudly (louder than talking or can be heard through closed doors)? Tobacco Use History Tobacco Use History - divider operator: Tobacco Use History - divider operator Tobacco Use Smoking Status Never smoker 01/25/24 09:25 Hx Tobacco Use No 01/25/24 09:25 Years Smoking Packs Smoked per Day Smoking Cessation Date was within the last 15 years Hx Smoking Cessation Date Hx Smoking Cessation Counseling Hematologic Medial History Hematologic Hx - divider operator: Hematologic Medical Hx - admissions dean Hx of Blood Transfusion No 01/25/24 09:25 Hx of Transfusion in last 3 No 01/25/24 09:25 Months Date of Last Transfusion (if within last 3 months) Ever experience any problems No 01/25/24 09:25 with transfusion(s)? Specify any problems Hx of Preganancy in last 3 N/A 01/25/24 09:25 Months Nurse Filling Out Transfusion NBUCHER 01/25/24 09:25 & Questions: Date: 01/25/24 01/25/24 09:25 Time: 09:26 01/25/24 09:25 Patient unable to answer at this time (ie. confused, unrespo /Reproduction History /Reproductive History - divider operator: /Reproductive Hx- divider operator Hx Now No 01/25/24 09:25 Gestational Age (in weeks): EDC: Hx Hx Para Hx Section SAB No 01/25/24 09:25 Active Medications Active Medications: Current Medications Generic Name Dose Route Start Last Admin Trade Name Freq PRN Reason Stop Dose Admin Acetaminophen 1,000 mg 01/30/24 10:15 Acetaminophen 500 Mg Tablet PO 01/30/24 10:16 PREOP ONE Celecoxib 400 mg 01/30/24 10:15 Celecoxib 200 Mg Capsule PO 01/30/24 10:16 X1 ONE Dexamethasone Sodium Phosphate 8 mg 01/30/24 10:15 Dexamethasone 4 Mg/Ml Vial IV 01/30/24 10:16 X1 ONE Enoxaparin Sodium 40 mg 01/30/24 10:15 Enoxaparin 40 Mg/0.4 Ml Syringe SC 01/30/24 10:16 X1 ONE Gabapentin 600 mg 01/30/24 10:15 Gabapentin 600 Mg Tablet PO 01/30/24 10:16 PREOP ONE Lactated Ringer's 1,000 mls @ 40 mls/hr 01/30/24 10:15 IV .Q25H JASMIN Cefazolin Sodium 3 gm/ Sodium 115 mls @ 150 mls/hr 01/30/24 10:15 Chloride IV 01/30/24 11:00 PREOP ONE Magnesium Sulfate 1 gm/ 102 mls @ 408 mls/hr 01/30/24 10:15 Dextrose IV 01/30/24 10:29 X1 ONE Insulin Human Lispro 0 unit 01/30/24 10:15 Insulin Lispro 100 Unit/Ml Insuln.Pen SC 01/30/24 16:00 Q4H PRN PRN BG >/= 180, SEE PROTOCOL Protocol Ondansetron HCl 4 mg 01/30/24 10:15 Ondansetron 4 Mg/2 Ml Vial IV 01/30/24 10:16 X1 ONE Phenazopyridine HCl 190 mg 01/30/24 10:15 Phenazopyridine 95 Mg Tablet PO 01/30/24 10:16 X1 ONE Scopolamine HBr 1 patch 01/30/24 10:15 Scopolamine 1mg/72hr Patch TD 01/30/24 10:16 X1 ONE [facility] Medical History Wears glasses Depression Anxiety History of steroid therapy Restless legs Non-smoker PONV (postoperative nausea and vomiting) Contraceptive management Home Medications ?Medication ?Instructions ?Recorded ?Last Taken ?Type bupropion HCl 300 mg 24 hr tablet, 300 mg PO QAM 08/28/23 Unknown History extended release citalopram 40 mg tablet 40 mg PO DAILY 08/28/23 Unknown History gabapentin 100 mg capsule 300 mg PO QHS PRN Restless legs at 01/25/24 Unknown History night time rizatriptan 10 mg tablet 10 mg PO PRN PRN Migraines 01/25/24 Unknown History trazodone 100 mg tablet 100 mg PO QHS PRN PRN insomnia 01/25/24 Unknown History Allergy/AdvReac Type Severity Reaction Status Date / Time No Known Allergies Allergy Verified 01/25/24 09:22 Surgical History History of tonsillectomy and adenoidectomy S/P tubal ligation Social History adopted: No household members: family housing: house number of children: 3 current occupational status: employed 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 current occupational exposures/hazards: No pets and animals: Yes history of recent travel: No sexually active: Yes Smoking Status: Never smoker second hand exposure: No alcohol intake: current alcohol intake frequency: holidays/special occasions only substance use type: does not use well-balanced diet: daily or most days eating out: rarely or never during the past year weight has: decreased > 10 lbs what type of physical activity do you participate in: walking frequency: 3-4 times per week mimi/taoism: None do you feel safe at home: Yes additional social history: - Bob Review of Systems (Anesthesia) ROS Narrative System reviewed and no additional complaints, except as documented.
[2024-01-30 08:20] LABS: Internal QC Validated? YES +Cl - CLEAR BKGD; Pregnancy, Urine Negative Negative
[2024-01-30] MEDS: Lactated Ringers 1,000 ML 40 ML IV (08:25)
[2024-01-30] MEDS: dexAMETHasone 4 MG/ML Vial 8 MG IV (08:30)
[2024-01-30] MEDS: Magnesium 1 GM over 15 mins IV (08:35)
[2024-01-30] MEDS: Scopolamine 1mg/72hr Patch 1 PATCH TD (08:52)
[2024-01-30] MEDS: Phenazopyridine 95 MG Tablet 190 MG PO (08:52)
[2024-01-30] MEDS: Celecoxib 200 MG Capsule 400 MG PO (08:52)
[2024-01-30] MEDS: Acetaminophen 500 MG Tablet 1000 MG PO (08:52)
[2024-01-30] MEDS: Enoxaparin 40 MG/0.4 ML Syringe SC (08:53)
[2024-01-30] MEDS: Gabapentin 600 MG Tablet PO (08:53)
--- NOTE | 2024-01-30 10:15 | HYST_PTH ---
PATIENT: GUSTABO FIGUEROA [place] [facility] [place][id number] AGE/SX: 28/F ROOM: RE01/30/[address]: Dr. Tita Harry MD : 1995 BED: DIS: 01/30/2024 SPEC #: [id number] RECD: 01/30/24 16:13 STATUS: MAURICE REAlfonso #: [id number] ANDREW: 01/30/24 10:[address]: Tita Harry DEPT: SURGICAL PATHOLOGY RECD BY: Valery Frausto ENTERED: 01/31/24 07:11 SP TYPE: HYSTERECT OTHR DR: Dr. Sherlyn Villar, DO Tissues: Uterus, NOS Procedures: Surgery Specimen Level V HEADER OPERATION: Hysterectomy, LAV PRE-OP DIAGNOSIS: Endometriosis TISSUE SUBMITTED: Cervix, uterus MICROSCOPIC DIAGNOSIS Uterus, hysterectomy: Cervix - Nabothian cysts, mild chronic inflammation and squamous metaplasia. Endometrium - Secretory endometrium. Myometrium - Focal subserosal adenomyosis. / 02/01/2024 MICROSCOPIC DESCRIPTION Slides are reviewed. GROSS DESCRIPTION Received in fixative is one container labeled with the patient's name and designated cervix, uterus. The specimen consists of a hysterectomy specimen consisting of uterus with cervix. The uterus with cervix weighs 91 gm and measures 8.5 x 6.0 x 4.0 cm. The serosal surface is robert glistening. The ectocervical mucosa is unremarkable. The external os is oval in contour. The endocervical canal measures 3.0 cm in length and the endocervical mucosa is robert glistening and unremarkable. Sections of cervix reveal a few cysts filled with mucoid material. The triangular endometrial cavity measures 4.5 cm in length and 3.0 cm in width. The endometrium is pink, congested and glistening without any mass lesions and measures 0.1 cm in thickness. Section of the uterine wall do not reveal any mass lesions and measures up to 2.0cm in thickness. Lead Retail Sales Associate sections are submitted in six cassettes as follows: 1 - anterior cervix, 2 - posterior cervix, 3 & 4 - anterior uterine wall, 5 & 6 - posterior uterine wall. DORIAN: 01/31/2024 TC:3 CPT: 35527
[2024-01-30] MEDS: Cefazolin 3 GM in 0.9% Normal Saline (100mL Bag) 100 ML IV (12:11)
[2024-01-30] MEDS: Vasopressin 20 UNITS/ML Vial (12:54)
[2024-01-30] MEDS: Bupivacaine 0.25% 30 ML Vial (12:55)
--- NOTE | 2024-01-30 14:20 | PCM.POST.ANE ---
Anesthesia: Postop Eval I Current Vital Signs Temperature: 98.4 F Pulse Rate: 105 Blood Pressure: 122/76 Respiratory Rate: 18 Pulse Ox: 96 (4l O2 NC with ETCO2) Assessment Airway patent: Yes Spontaneous unlabored respirations: Yes nausea: No Vomiting: No Anesthesia Complication: No Fluid Hydration Crystalloid volume administer (ml): 1,200 Total IV fluid infused: 1,200 Progress Note Anesthesia document: Postop Eval 1 completed: Yes
--- NOTE | 2024-01-30 14:49 | PCM.OPRPT ---
Problems Associated Problem List Diagnoses (1) S/P laparoscopic assisted vaginal hysterectomy (LAVH): (2) Endometriosis: Report of Operation Date of Procedure: 01/30/24 Pre-Operative Diagnosis: see A/P Post-Operative Diagnosis: same Surgery/Procedure Performed:: LAVH Surgeon: Tita Harry impregnating helper: Zoraida Albarran Type of Anesthesia: General Special Medications: floseal Specimen's removed: uterus Drains: abdi Fluids Replaced: crystalloid Description of Procedure: Patient received preoperative antibiotics and SCDs were on preoperatively. Patient was taken back to the operating room and placed in the dorsal lithotomy position. General anesthesia was induced and patient was prepped and draped in normal sterile fashion. Uterine manipulator was placed inside the uterus and Abdi catheter placed in the bladder. The umbilicus was grasped with towel clamps and an intraumbilical incision was made after injecting with quarter percent Marcaine and a Veress needle entered into the abdomen confirmed to be intra-abdominal with a low opening pressure. Abdomen was insufflated with CO2 gas and the Veress needle removed and the 5 mm trocar was placed under direct visualization without complication. Right and left lower quadrants were transilluminated and injected with quarter percent Marcaine and 5 mm ports placed under direct visualization. Pelvis was well visualized see operative findings for additional information. The broad ligament was opened up by transecting the round ligament bilaterally and skeletonizing the uterine vessels bilaterally and creating a bladder flap using the LigaSure device. The uterine arteries were transected bilaterally with good visualization of the bladder and the ureters were seen to be inferior lateral to the operative area. Attention was then paid to the vaginal portion of the procedure and the cervix was grasped with Melissa clamps and circumferentially injected with dilute vasopressin. A circumferential incision was made and the vaginal mucosa was mobilized off posteriorly and the cul-de-sac entered into sharply and a longneck speculum placed. The anterior cul-de-sac was then identified and entered into sharply. The uterosacral ligaments were clamped cut and suture ligated with 0 Monocryl bilaterally followed by the cardinal ligaments which were clamped cut and suture ligated bilaterally with 0 Monocryl. The uterus serially descended and was removed without difficulty. Pelvic sidewall pedicles were checked and noted to have excellent hemostasis. The vaginal mucosa was reapproximated incorporating the posterior peritoneum. This was reapproximated using 0 Vicryl [id number] sutures. Excellent hemostasis was noted. The pelvis and cul-de-sac were well visualized and no significant active bleeding noted but some raw areas were seen on the peritoneum and therefore floseal was applied. Pressure was taken down and the areas visualized and noted of excellent hemostasis. All ports were removed under direct visualization without complication and the abdomen was desufflated of air. The instruments were removed from the abdomen and the vaginal sweep was negative. Port sites on the abdomen were closed with 4-0 Monocryl interrupted sutures and Steri's and windows were applied. She was awoken and taken recovery in stable condition. Grafts/Implants Used: none Complications none Admit VTE Documentation VTE Present on Admission: No VTE Mechan Device Prophylaxis: SCD's VTE Pharm Prophylaxis ordered?: Yes Procedures Urinary/Genital [id number]: 40911 LAVH <250gr Uterus
[2024-01-30 14:59] LABS: Bedside Glucose 135 mg/dL (74-106)
--- NOTE | 2024-01-30 15:30 | POSTOPAN2_ITS ---
Anesthesia Postop Eval I Sum Postop Eval Completion status Anesthesia document: Postop Eval 1 completed: Yes Anesthesia Postop Eval I Summary Anesthesia Postop Eval I Summary: Anesthesia Postop Eval I: Assessment Summary Airway patent Yes 01/30/24 14:20 [email or web address] Spontaneous unlabored Yes 01/30/24 14:20 [email or web address] respirations Mental status nausea No 01/30/24 14:20 [email or web address] Vomiting No 01/30/24 14:20 [email or web address] Anesthesia Postop Eval I: Fluid Summary Crystalloid volume administer 1,200 01/30/24 14:20 [email or web address] (ml) Colloids volume administered ( ml) Blood Product volume administered (ml) Total IV fluid infused 1,200 01/30/24 14:20 [email or web address] Anesthesia Postop Eval I: Summary Notes Anesthesia Complication No 01/30/24 14:20 [email or web address] Anesthesia Complication Comment: Post-operative progress note Anesthesia: Postop Eval II Evaluation Mental status: Awake and Calm Pain Level: 2 nausea: No Vomiting: No Complications Anesthesia Complication: No
--- NOTE | 2024-01-30 15:30 | PCM.POSTANE2 ---
Anesthesia Postop Eval I Sum Postop Eval Completion status Anesthesia document: Postop Eval 1 completed: Yes Anesthesia Postop Eval I Summary Anesthesia Postop Eval I Summary: Anesthesia Postop Eval I: Assessment Summary Airway patent Yes 01/30/24 14:20 [email or web address] Spontaneous unlabored Yes 01/30/24 14:20 SAND [email or web address] respirations Mental status nausea No 01/30/24 14:20 SAND [email or web address] Vomiting No 01/30/24 14:20 [email or web address] Anesthesia Postop Eval I: Fluid Summary Crystalloid volume administer 1,200 01/30/24 14:20 [email or web address] (ml) Colloids volume administered ( ml) Blood Product volume administered (ml) Total IV fluid infused 1,200 01/30/24 14:20 [email or web address] [email or web address] Anesthesia Postop Eval I: Summary Notes Anesthesia Complication No 01/30/24 14:20 [email or web address] [email or web address] Anesthesia Complication Comment: Post-operative progress note Anesthesia: Postop Eval II Evaluation Mental status: Awake and Calm Pain Level: 2 nausea: No Vomiting: No Complications Anesthesia Complication: No
[2024-01-30] MEDS: oxyCODONE 5 MG Tablet PO (15:49)
[2024-01-30] MEDS: Ketorolac 30 MG/ML Syringe IV (15:49)
--- NOTE | 2024-01-30 16:09 | SUR.PHASEII ---
Failed attempt to get blood from right ac, stopped fluids to left hand, will wait 20 mins and try blood draw in left ac.
[2024-01-30 16:57] LABS: Absolute Lymphocyte Count 0.46 X10^3/uL (0.83-4.51); Absolute Neutrophil Count 8.7 X10^3/uL (2.0-7.7); Basophil# 0.02 X10^3/uL; Basophil% 0.2 % (0-1); Hematocrit 39.8 % (37-47); Hemoglobin 12.9 g/dL (12.0-15.0); Lymphocyte # 0.46 X10^3/ul (0.83-4.51); Lymphocyte % 4.9 % (19-41); Mean Corp Hgb Conc 32.4 g/dL (32-36); Mean Corpuscular Hgb 28.5 pg (27.0-32.0); Mean Corpuscular Volume 87.9 fL (81-99); Mean Platelet Vol. 9.8 fl (6.2-12.0); Monocyte# 0.12 X10^3/uL; Monocyte% 1.3 % (0-10); NRBC Flagged by Analyzer 0 % (0-5); Neutrophil # 8.69 X10^3/uL (2.7-7.7); Neutrophil % 93.1 % (47-70); POSITIVE DIFFERENTIAL YES; Platelet Count 231 K/mm3 (150-450); RBC Distribution Width CV 13.1 % (11.6-14.6); RBC Distribution Width SD 42.2 fl (35.1-43.9); Red Blood Count 4.53 M/mm3 (4.2-5.4); White Blood Count 9.3 K/mm3 (4.4-11.0)
--- NOTE | 2024-01-30 17:19 | DCINST_ITS ---
Discharge Instructions Diet Discharge Diet: No restrictions Activity May resume sexual activity in: 6 weeks Weight Bearing Status: Full weight bearing Dressing / Incision Call your doctor if your incision/area has: Continuous Slow Oozing, Sudden Increased Bleeding, Increased Pain/ Swelling, Increased Redness and Foul Smelling Discharge Call your doctor if you observe: Fever of 101 or Higher, Using more than 1 pad per hour, Shortness of breath, Chest pain and Uncontrolled pain Suture Line Care: Avoid Pulling/Pushing and Avoid Pinching/Bending Remove Dressing in: 1 week (if present) Cleanse incision/area with: Soap & Water and Keep Dressing Clean & Dry Follow Up Care Please Follow Up With: Tita Harry MD When: Call to make an appointment with your doctor for a postop visit in 2 and 6 weeks. Test Results: Test results from this visit will be discussed in further detail at your follow- up appointment, if applicable. Discharge Plan Admission Attending Provider: Tita Harry Primary Care Provider: Sherlyn Villar Instructions Print Language: [place] Discharge Orders/Prescriptions Prescriptions: New oxycodone-acetaminophen [Percocet] 5-325 mg tablet 1 tab PO Q6H PRN (Reason: pain) 7 Days Qty: 10 0RF naproxen 500 mg tablet 500 mg PO BID PRN PRN (Reason: Pain) Qty: 30 1RF oxycodone-acetaminophen [Percocet] 5-325 mg tablet 1 tab PO Q6H PRN (Reason: pain) 7 Days Qty: 10 0RF naproxen 500 mg tablet 500 mg PO BID PRN PRN (Reason: Pain) Qty: 30 1RF No Action bupropion HCl 300 mg tablet extended release 24 hr 300 mg PO QAM citalopram 40 mg tablet 40 mg PO DAILY rizatriptan 10 mg tablet 10 mg PO PRN PRN (Reason: Migraines) Patient Comments: Take 1 tablet as needed trazodone 100 mg tablet 100 mg PO QHS PRN PRN (Reason: insomnia) gabapentin 100 mg capsule 300 mg PO QHS PRN (Reason: Restless legs at night time) Referrals / Follow Up: Sherlyn Villar DO [Primary Care Provider] - Disposition Disposition (needs filled in before D/C Order can be placed): Home, Self Care
== END 2024-01-30 19:06 | disposition home or self-care (01) ==
LOC: SDC 07:44 → AC 07:44
PROVIDERS: Anesthesiology; PCP Internal Medicine; Referring Provider Obstetrics & Gynecology; Visit Provider Obstetrics & Gynecology
PROC: 0UT9FZZ Resection of Uterus, Via Natural or Artificial Opening With Percutaneous Endoscopic Assistance (ICD-10-PCS; CPT 58550; principal; 2024-01-30 09:50)
DX: N88.8 Other specified noninflammatory disorders of cervix uteri (principal); N87.9 Dysplasia of cervix uteri, unspecified; N80.03 Adenomyosis of the uterus; F32.A Depression, unspecified; F41.9 Anxiety disorder, unspecified; Z79.899 Other long term (current) drug therapy
CPT/HCPCS: 58550; 00840; 36415; 81025; 82962; 83735; 85025; 85027; 86850; 86900; 86901; 88307; J7120; J2405; J3475